=== PATIENT | female | born 2005 | race Caucasian/White ===

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

== ENCOUNTER 2024-04-17 19:29 | Emergency (ER) | payer OTHER, SELFPAY ==
[2024-04-17 19:34] VITALS: BP 151/86; PULSE 99; RESP 26; TEMP 37.2; O2SAT 98; BMI 24.4
--- NOTE | 2024-04-17 19:39 | ED.SOB ---
HPI - SOB/Dyspnea General Time Seen by Provider: 19:39 Date Seen: 04/17/24 Chief Complaint: Shortness of Breath/Dyspnea Stated Complaint: asthma attack Time Seen by Provider: 04/17/24 19:35 Source: patient and RN notes reviewed Mode of arrival: ambulatory Limitations: no limitations History of Present Illness HPI Narrative: This 19-year-old female is coming in with complaint of asthma exacerbation. She states she started with an asthma flare about an hour ago. She was outside, they were doing a vigorous volleyball practice. She tried her albuterol inhaler without much relief, did take a 20 mg prednisone that she had. She does have underlying seasonal allergies. She is question couple of times in she has not been sick with anything, no underlying cough or cold symptoms, no sore throat, no nasal drainage, no fevers or chills. She states she will usually get a neb when she gets like this in a prescription for steroids. 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 She states she is no longer on the budesonide formoterol. Related Data Home Medications ?Medication ?Instructions ?Recorded ?Confirmed albuterol sulfate 90 mcg/actuation 1 inh inhalation Q4-6H PRN 10/29/23 10/29/23 aerosol inhaler budesonide-formoterol HFA 160 1 inh inhalation BID 10/29/23 10/29/23 mcg-4.5 mcg/actuation aerosol inhaler sertraline 200 mg capsule 200 mg PO DAILY 10/29/23 10/29/23 Allergies Allergy/AdvReac Type Severity Reaction Status Date / Time No Known Drug Allergies Allergy Verified 10/29/23 19:52 Review of Systems Narrative: As per HPI. PFSH PFS Medical History (Updated 04/17/24 @ 20:39 by Ellyn Armstrong MD) Asthma ?J45.909 - Unspecified asthma, uncomplicated (ICD-10) Social History Smoking Status: Never smoker Do you use any of these nicotine containing products: None Non-prescribed substance use: denies use Exam Const: Vital Signs, click to edit/add: Vital Signs - 24 hr 04/17/24 19:34 04/17/24 19:44 04/17/24 19:45 Temperature 99 F Pulse Rate 105 H 100 Pulse Rate [Pulse Oximeter] 99 Respiratory Rate 26 H 26 H Blood Pressure [Ri ght Upper Arm] 151/86 H Pulse Oximetry 98 94 96 04/17/24 20:00 Temperature Pulse Rate 106 H Pulse Rate [Pulse Oximeter] Respiratory Rate 20 Blood Pressure [Ri ght Upper Arm] Pulse Oximetry 97 Stephanie is a 19-year-old female seen in exam room 7, she is alert, interactive, has a harsh cough that does impede her speech. When she does talk, there is no hoarseness. Pupils are equal round reactive, sclera clear, symmetrical facial function. Neck supple, no adenopathy, no thyromegaly masses or nodules. Lungs actually are clear, prolonged expiratory phase but no wheezing or crackles. Again, she does have a harsh recurrent cough. CV regular rate and rhythm, no murmur, normal S1-S2, no S3-S4. Appears to be mildly tachypneic. Skin visualized without rash. Documenting provider has reviewed patient's vital signs: yes Course Course ED Course: Will give patient DuoNeb, continue monitoring. Based on questioning regarding current history, it does not sound like there is any illness precipitating this. She does endorse he has no allergies and exercises triggers and was doing both outside. She has already taken 20 oral prednisone, will monitor and see how she does after the DuoNeb. Reevaluation(s) Time of Reevaluation #1: 20:07 Reevaluation #1: Patient has completed the DuoNeb. Cough is less harsh but is still coughing some. She states she feels a bit better. Lungs are clear, prolonged expiratory phase, no wheezing or crackles. We will continue to observe and make sure she does not need another nebulization. Time of Reevaluation #2: 20:34 Reevaluation #2: She is feeling much better, no longer coughing. Will discharge with a course of prednisone. She still has her maintenance inhaler, have advised her to maybe consider going back on that at least through the acute flare. She would like the prednisone from [facility]. Vital Signs Vital signs: Initial Vital Signs Temperature 99 F 04/17/24 19:34 Temperature Source Temporal Artery Scan 04/17/24 19:34 Pulse Rate 99 04/17/24 19:34 Respiratory Rate 26 H 04/17/24 19:34 Blood Pressure 151/86 H 04/17/24 19:34 Blood Pressure Mean 107 H 04/17/24 19:34 Pulse Oximetry 98 04/17/24 19:34 Vital Signs Temperature 99 F 04/17/24 19:34 Pulse Rate 99 04/17/24 19:34 Respiratory Rate 26 H 04/17/24 19:34 Blood Pressure 151/86 H 04/17/24 19:34 Pulse Oximetry 98 04/17/24 19:34 Temperature 99 F 04/17/24 19:34 Pulse Rate 106 H 04/17/24 20:00 Respiratory Rate 20 04/17/24 20:00 Blood Pressure 151/86 H 04/17/24 19:34 Pulse Oximetry 97 04/17/24 20:00 Medications Administered Medications: Discontinued Medications Generic Name Dose Route Start Last Admin Trade Name Freq PRN Reason Stop Dose Admin Albuterol/Ipratropium 1 neb 04/17/24 19:42 04/17/24 19:48 Iprat-Albut 0.5-2.5 Mg/3 Ml Neb IH 04/17/24 19:43 1 neb ONCE ONE Administration Discharge Plan Discharge Clinical Impression: Asthma with acute exacerbation Qualifiers: Asthma severity: mild Asthma persistence: unspecified Qualified Code(s): J45.901 - Unspecified asthma with (acute) exacerbation Patient Disposition: Home, Self-Care Condition: Stable Instructions: Asthma (ED) Additional Instructions: Take prednisone as prescribed, 20 mg twice a day with food for 5 days. Use your albuterol inhaler per prescription as needed for rescue. Do recommend considering going back on the budesonide formoterol maintenance inhaler. You can always talk to your primary provider at home regarding this inhaler. If you are worsening, have recurrent symptoms that are not responding to your home treatments as outlined, have further concerns, please return for further evaluation. Activity Level: Activity as Tolerated Prescriptions: No Action albuterol sulfate 90 mcg/actuation HFA aerosol inhaler 1 inh inhalation Q4-6H PRN budesonide-formoterol 160-4.5 mcg/actuation HFA aerosol inhaler 1 inh inhalation BID sertraline 200 mg capsule 200 mg PO DAILY Follow Up/Referrals: Provider,Not a Local [Primary Care Provider] - Stand Alone Forms: [employer] Info Instructions
[2024-04-17 19:44] VITALS: PULSE 105; RESP 26; O2SAT 94
[2024-04-17 19:45] VITALS: PULSE 100; O2SAT 96
[2024-04-17] MEDS: IPRAT-ALBUT 0.5-2.5 MG/3 ML NEB 1 NEB IH (19:48)
[2024-04-17 20:00] VITALS: PULSE 106; RESP 20; O2SAT 97
== END 2024-04-17 20:47 | disposition home or self-care (01) ==
PROVIDERS: Emergency Provider Family Medicine
DX: J45.901 Unspecified asthma with (acute) exacerbation (principal)
CPT/HCPCS: 94640; 94761; 99283; 99284

== ENCOUNTER 2024-05-26 10:12 | Day surgery (SDC) | payer OTHER, SELFPAY ==
[2024-05-26] VITALS (9 sets, daily range): BP systolic 112–136; BP diastolic 68–87; PULSE 41–55; RESP 16; TEMP 36.1–36.4; O2SAT 95–97; BMI 27.3
[2024-05-26] MEDS: SODIUM CHLORIDE 0.9 % (FLUSH) 10 ML SYRINGE IVF (10:45)
--- NOTE | 2024-05-26 12:22 | W.PM.H&PU ---
History & Physical Update History & Physical Update H&P Reviewed and patient assessed: No changes noted
--- NOTE | 2024-05-26 12:30 | CRLHL7_ITS ---
For Patients: As a result of the Cures Act, medical imaging exams and procedure reports are released immediately into your electronic medical record. You may view this report before your referring provider. If you have questions, please contact your health care provider. Indication: RIGHT 5TH METACARPAL ORIF Technique: Three fluoroscopic images of the right 5th metacarpal. Fluoroscopic time 29.3 seconds. IMPRESSION: Fluoroscopic guidance for open reduction internal fixation of 5th metacarpal fracture. Dictated by Michael Orozco MD @ 05/29/2024 9:22:19 AM (Electronically Signed)
--- NOTE | 2024-05-26 12:37 | W.ANESCHARGE ---
Anesthesia Charges Start Date/Time Anesthesia Start Date: 05/26/24 Anesthesia Start Time: 13:52 Stop Date/Time Anesthesia Stop Date: 05/26/24 Anesthesia Stop Time: 14:53
--- NOTE | 2024-05-26 12:37 | W.PM.NB ---
Nerve Block Nerve Block Time Seen by Provider: 12:48 Date Seen: 05/26/24 Type of block requested by surgeon for post-operative analgesia: axillary Side: right Time out performed: Yes Verification of patient name: Yes Verification of date of : Yes Site marking: site marked Name of person performing procedure: Jason Continuous monitoring Was continuous monitoring of O2 sat, B/P, court recording monitor, recorded every 15 minutes?: Yes Procedure Checklist: sterile prep, needles and gloves Ultrasound guided. Images saved: Yes Medications given in 5ml increments after negative aspiration: Ropivicaine %: 0.5 mL: 20 Needle gauge: 22 Patient tolerated procedure well: Yes Additional comments: Needle noted adjacent to nerve Block Charges Block Charge (with Pro Fee): Brachial Plexus Use of Ultrasound Machine for Block: Yes- US Guidance/pain block
[2024-05-26] MEDS: fentaNYL 100 MCG/2 ML inj IVP (12:43)
[2024-05-26] MEDS: MIDAZOLAM HCL 1 MG/ML inj IVP (12:43)
--- NOTE | 2024-05-26 13:12 | SUR.PREOP ---
TIME?OUT:?1243 PT/RN/MDA?VERIFICATION?OF?SURGICAL?SITE,?PROCEDURE,?AND?CONSENT OBTAINED?PRIOR?TO?INVASIVE?PROCEDURE.
[2024-05-26] MEDS: CEFAZOLIN 2 GM in 0.9 % SODIUM CHLORIDE Mini-bag 100 ML IVPB (14:02)
--- NOTE | 2024-05-26 14:52 | P.ORPRC_ITS ---
Procedure Note Date of procedure: 05/26/24 Procedure: PREOPERATIVE DIAGNOSES: 1. Right 5th metacarpal metadiaphyseal base fracture, closed, acute, with displacement, shortening. POSTOPERATIVE DIAGNOSES: 1. Right 5th metacarpal metadiaphyseal base fracture, closed, acute, with disp lacement, shortening. NAME OF OPERATION: 1. Right 5th metacarpal open reduction with internal fixation utilizing intramedullary screw 2. 51728 - intraoperative fluoroscopy up to 1 hour. SURGEON: James Cordova MD SOLAR PANEL INSTALLER: Quin Richards PA-C ANESTHESIA: Axillary block + MAC IMPLANTS: Acumed INnate 3.6 mm fully-threaded metacarpal screw (x1) TOURNIQUET: None. INDICATIONS: The patient is a pleasant 19-year-old female who sustained a right 5th metacarpal fracture recently. They were evaluated at a medical facility. X-rays revealed a metacarpal fracture that was shortened and displaced. Given the instability and significant displacement, it was felt that surgery for fracture fixation would be prudent. FINDINGS: Right closed, displaced, shortened 5th metacarpal fracture. PROCEDURE: Following a thorough discussion of risks, benefits, and alternatives, consent was obtained and the operative extremity was marked. The patient was brought to the operating room and placed supine on the operating table. Induction of anesthesia was achieved. Appropriate time out was performed identifying proper patient, site and procedure. 2 g IV Ancef was administered within 1 hour of incision preoperatively. The right upper extremity was prepped and draped in the appropriate sterile fashion using ChloraPrep. The fracture alignment was assessed with fluoroscopy. Once it was noted the fracture could be reduced, the appropriate guide pin was drilled retrograde from the metacarpal head. The pin start was in the dorsal 1/3 of the metacarpal head. Once the pin starting position and final resting position was confirmed to be appropriate with fluoroscopy, the screw length was measured, the skin incision completed, metacarpal drilled, and screw placed with excellent security and fit within the metacarpal, stabilizing the fracture. At this stage, the wound was thoroughly irrigated with normal saline. Closure performed skin glue. Soft splint/dressing was applied, and the patient woken from anesthesia and transferred the PACU in stable condition. PLAN: 1. Elevate operative extremity. 2. Ice, acetominphen or ibuprofen PRN. 3. Oxycodone for pain as needed. 4. Follow up with PA visit in 5-7 days for dressing removal, wound check, and orthoplast splinting via OT (she should wear the orthoplast splint while on her trip, but may remove periodically for ROM of fingers/fist formation). After return from [place] trip, no further bracing. Gentle range of motion, gripping, pinching as tolerated based on pain. Then follow-up at the 4.5-5 week arabella from surgery with me with repeat x-rays right hand-three views.
--- NOTE | 2024-05-26 14:55 | W.ANESCHARGE ---
Anesthesia Charges Start Date/Time Anesthesia Start Date: 05/26/24 Anesthesia Start Time: 13:52 Stop Date/Time Anesthesia Stop Date: 05/26/24 Anesthesia Stop Time: 14:53
== END 2024-05-26 15:54 | disposition home or self-care (01) ==
PROVIDERS: PCP Family Medicine; Visit Provider Orthopaedic Surgery Sports Medicine
PROC: (CPT 26615; principal; 2024-05-26 12:30)
DX: S62.316A Displaced fracture of base of fifth metacarpal bone, right hand, initial encounter for closed fracture (principal); G89.18 Other acute postprocedural pain
CPT/HCPCS: 26615; 01830; 64415; 73130; 76942; 81025; A4580; C1713; J0690; J1100; J2250; J2405; J2704; J2795; J3010

== ENCOUNTER 2024-07-20 14:15 | Outpatient (RCR) | payer OTHER, SELFPAY | END 2024-07-21 07:43 | disposition home or self-care (01) | PROVIDERS: PCP Family Medicine; Visit Provider Orthopaedic Surgery Sports Medicine | DX: S62.316A Displaced fracture of base of fifth metacarpal bone, right hand, initial encounter for closed fracture (principal); Z98.890 Other specified postprocedural states; R53.1 Weakness; M25.641 Stiffness of right hand, not elsewhere classified; M79.641 Pain in right hand; Z51.89 Encounter for other specified aftercare | CPT/HCPCS: 97110; 97140; 97165; L3806; L3919; X5282 ==